=== PATIENT | female | born 1945 | race Caucasian/White ===

== ENCOUNTER 2022-11-16 13:36 | Emergency (ER) | payer MEDICARE, OTHER, SELFPAY ==
[2022-11-16] VITALS (13 sets, daily range): BP systolic 112–163; BP diastolic 57–73; PULSE 64–75; RESP 12–35; TEMP 36.4; O2SAT 94–99; BMI 35.1
--- NOTE | 2022-11-16 13:55 | DI.RAD.S_ITS ---
PROCEDURE: XR CHEST 1V INDICATIONS: chest pain TECHNIQUE: One view of the chest was acquired. COMPARISON: None. FINDINGS: Surgical changes and devices: None. Lungs and pleura: No focal airspace opacities. There is diffuse interstitial prominence. Mediastinum: Mediastinal contours appear normal. Heart size is normal. Bones and chest wall: No suspicious bony lesions. Overlying soft tissues appear unremarkable. IMPRESSION: Diffuse interstitial prominence suggesting fluid overload. Dictated by: Ashley Shipley M.D. on 11/16/2022 at 15:32 Approved by: Ashley Shipley M.D. on 11/16/2022 at 15:33
[2022-11-16 14:06] LABS: Add Manual Diff / Slide Review NO; Basophils Absolute Auto 100 /uL (0-100); Basophils Percent Auto 1.3 % (0-2); Eosinophils Absolute Auto 500 /uL (0-450); Eosinophils Percent Auto 6.7 % (2-4); Hematocrit 41.9 % (36-46); Hemoglobin 13.8 g/dL (12.0-16.0); Lymphocytes Absolute Auto 1700 /uL (1100-4500); Lymphocytes Percent Auto 22.4 % (25-40); Mean Corpuscular Hemoglobin 30.3 PG (26-34); Mean Corpuscular Volume 91.9 fL (80-100); Monocytes Absolute Auto 800 /uL (0-900); Monocytes Percent Auto 11.2 % (3-14); Neutrophils Absolute Auto 4400 /uL (1500-7000); Neutrophils Percent Auto 58.4 % (50-75); Platelet Count 321 X10^3/uL (150-400); Red Blood Cell Count 4.56 X10^6/uL (4.0-5.2); Red Cell Distribution Width 13.9 % (11.6-14.8); White Blood Cell Count 7.6 X10^3/uL (4.5-11.0)
[2022-11-16 14:14] LABS: INR 0.9 (0.9-1.3); Prothrombin Time 10.8 SECONDS (10.1-12.7)
[2022-11-16 14:16] LABS: PTT Partial Thromboplastin Tim 29 SECONDS (26-36)
[2022-11-16 14:19] LABS: Alanine Aminotransferase 50 IU/L (<35); Alkaline Phosphatase 77 U/L (38-126); Aspartate Aminotransferase 39 IU/L (14-36); BUN Creatinine Ratio 18.2 (6-22); Bilirubin Total 0.4 mg/dL (0.2-1.3); Blood Urea Nitrogen 14 mg/dL (7-17); Calcium 9.2 mg/dL (8.4-10.2); Carbon Dioxide 27 mmol/L (22-32); Chloride 102 mmol/L (98-107); Estimated Glomerular Filt Rate > 60 mL/min (>60); Glucose 111 mg/dL (80-110); Lipase 99 U/L (23-300); Magnesium 1.7 mg/dL (1.6-2.3); Potassium 4.3 mmol/L (3.4-5.1); Sodium 138 mmol/L (137-145); Total Protein 8.2 g/dL (6.3-8.2)
[2022-11-16 14:24] LABS: Creatine Kinase 73 U/L (30-135)
[2022-11-16 14:30] LABS: NT-proBNP (BNP-Adult 18+) 45 pg/mL (<125); Troponin I < 0.012 ng/mL (0.01-0.034)
--- NOTE | 2022-11-16 14:35 | DI.CT.S_ITS ---
PROCEDURE: CT CHEST ABD PEL W CON INDICATIONS: Fatigue; abdomen tenderness to palpate; hx endometrial cancer TECHNIQUE: After the administration of intravenous contrast, 5 mm thick sections acquired from the lung apices to the symphysis. 5 mm coronal and sagittal reformats were performed, with additional 7 mm MIP reformats through the lungs. For radiation dose reduction, the following was used: automated exposure control, adjustment of mA and/or kV according to patient size. COMPARISON: None. FINDINGS: Image quality: Excellent. CHEST: Lungs and pleura: A 7 mm pulmonary nodule is present within the posterior right upper lobe (series 5/image 103). There is diffuse, peripheral interlobular septal thickening suggesting early fibrotic change. A 5 mm pulmonary nodule is present within the lateral right lower lobe (series 5/image 245). A 7 mm pulmonary nodule is present at the right apex (series 5/image 71 base. A 7 mm pulmonary radiopacity is present at the left lung base (series 5/image 264). No pleural effusion or pneumothorax. No acute airspace opacities. Mediastinum: Heart size is normal. No pericardial effusion. No mediastinal or hilar adenopathy by size criteria. Thoracic aorta and central pulmonary arteries are normal in size. Esophagus is normal in caliber. No hiatal hernia. Chest wall: No axillary or supraclavicular adenopathy by size criteria. Thyroid gland is unremarkable . ABDOMEN: Solid organs: Liver is normal in size and enhancement. Gallbladder is surgically absent . Biliary system is non dilated. Pancreas enhances normally. Spleen is normal in size and enhancement. No adrenal nodules. Kidneys demonstrate normal size and enhancement, without hydronephrosis. A nonobstructing 2 mm calculus is present in the lower pole of the left kidney. No hydroureter or ureterolithiasis. Peritoneum and bowel: Bowel loops demonstrate normal wall thickness and caliber. The appendix is thin walled. No free fluid or air. Nodes and vessels: No retroperitoneal or mesenteric adenopathy by size criteria. Aorta and inferior vena cava are normal in size. Miscellaneous: There is a large fat containing umbilical hernia. PELVIS: Genitourinary: Bladder wall thickness is normal. Uterus is likely surgically absent. Miscellaneous: No inguinal hernias or adenopathy. Bones: No suspicious bony lesions. No vertebral body compression fractures. IMPRESSION: 1. No acute intra-abdominal findings. Normal appendix. 2. No acute thoracic findings. 3. Multiple pulmonary nodules measuring up to 7 mm in diameter. Please see follow-up guidelines below. Follow-up CT in 3 months recommended. Fleischner Society criteria for SOLID lung nodule followup. Nodule size (mm)Low-risk patientHigh-risk patient<6 (single or multiple)No routine followup.Optional CT at 12 months. 6-8 (single or multiple)CT at 6-12 months, then optional CT at 18-24 mo.CT at 6-12 months, then CT at 18-24 months. >8 (single)CT at 3 months, PET-CT, or biopsy. Same as for low-risk pts. >8 (multiple)CT at 3-6 months, then optional CT at 18-24 mo.CT at 3-6 months, then CT at 18-24 months. Fleischner Society criteria for SUB-SOLID lung nodule followup. Solitary pure ground-glass nodules<6 mm (ground glass or part solid)No followup needed. 6 mm or larger (ground glass)CT at 6-12 months to confirm persistence, then CT every 2 years until 5 years.6 mm or larger (part solid)CT at 3-6 months to confirm persistence, then annual CT until 5 years if unchanged and solid component remains <6 mm. Multiple sub-solid nodules<6 mmCT at 3-6 months, then CT consider at 2 & 4 years for high risk patients. [address] at 3-6 months. Subsequent management based on most suspicious lesions. Recommendations do not apply to lung cancer screening, patients with immunosuppression, or patients with known primary cancer. Dictated by: Ashley Shipley M.D. on 11/16/2022 at 16:17 Approved by: Ashley Shipley M.D. on 11/16/2022 at 16:22
--- NOTE | 2022-11-16 14:40 | ED_ITS ---
HPI - Chest Pain General Chief Complaint: Chest Pain Stated Complaint: chest tightness and pain, exhausted, tired Time Seen by Provider: 11/16/22 13:43 Source: patient and family Mode of arrival: Ambulatory Limitations: no limitations History of Present Illness HPI narrative: 76-year-old female with past medical history endometrial cancer in remission, hyperlipidemia, type 2 diabetes, hypothyroidism, depression, anxiety presents to the ED with 1.5 months of worsening fatigue, palpitations, lightheadedness. Pat mary jo states that she is now unable to do basic things such as walk around, perform ADLs such as cooking due to the fatigue. Patient complains of palpitations, chest tightness, needing to take a long deep breath and hold it in to feel like she is getting good air. Endorses some nausea, denies vomiting. Denies changes to bowel movements. Patient denies fever, chills, vomiting, dysuria, leg swelling. Patient underwent radiation for endometrial cancer about 4 years ago, has been cancer free since. Is being monitored by OBGYN Dr. Porsha Valdez. Patient's endorses tolerating p.o.. Endorses reduced appetite. Patient saw her PCP recently, who started her on fluoxetine and buspirone about a month ago, attributing her symptoms to anxiety. Patient states that her symptoms have remained unchanged with the addition of these medications. Patient denies being depressed or anxious. Related Data Home Medications Medication Instructions Recorded Confirmed levothyroxine 137 mcg tablet 137 mcg PO DAILY ##0 05/31/17 11/16/22 (Levoxyl) dicyclomine 10 mg capsule 10 mg PO BID 06/26/20 04/15/22 metformin 500 mg tablet,extended 500 mg PO BID 06/26/20 11/16/22 release 24 hr pravastatin 10 mg tablet 10 mg PO DAILY 04/15/22 04/15/22 buspirone 10 mg tablet 10 mg PO BID 11/16/22 11/16/22 fluoxetine 10 mg capsule 10 mg PO DAILY 11/16/22 11/16/22 Previous Rx's Medication Instructions Recorded furosemide 40 mg tablet (Lasix) 40 mg PO DAILY #30 tabs 11/16/22 Allergies Allergy/AdvReac Type Severity Reaction Status Date / Time chlorpheniramine Allergy Unknown Verified 11/16/22 13:59 [From TUSSIONEX] hydrocodone [HYDROCODONE] Allergy Unknown Verified 11/16/22 13:59 naproxen [NAPROXEN] Allergy Unknown Verified 11/16/22 13:59 pseudoephedrine Allergy Unknown Verified 11/16/22 13:59 [PSEUDOEPHEDRINE] Review of Systems Review of Systems ROS Unobtainable: All systems reviewed & are unremarkable except as noted in HPI and below Constitutional Constitutional: Denies chills, Reports daytime sleepiness, Reports fatigue, Denies fever(s), Denies frequent falls, Reports lethargy, Reports poor appetite and Reports weakness Eyes Eyes: Denies change in vision, Denies eye discharge, Denies irritation and Denies loss of vision ENT Ears, Nose, Mouth, and Throat: Denies change in voice, Denies dizziness, Denies neck pain, Denies sore throat and Denies throat swelling Cardiovascular Cardiovascular: Reports chest pain, Denies irregular heart rhythm, Denies lightheadedness, Reports palpitations, Reports dyspnea, Denies dyspnea on exertion and Denies orthopnea Respiratory Respiratory: Reports cough, Reports dyspnea, Denies dyspnea on exertion and Denies wheezing Gastrointestinal Gastrointestinal: Denies abdominal pain, Denies change in bowel habits, Denies diarrhea, Reports nausea and Denies vomiting Genitourinary Genitourinary: Denies hematuria, Denies flank pain, Denies urinary incontinence and Denies urinary urgency Musculoskeletal Musculoskeletal: Denies back pain, Denies muscle weakness, Denies neck pain, Denies numbness and Denies tingling Integumentary/Breasts Skin/Breast: Denies pruritus, Denies erythema, Denies rash and Denies wounds Neurologic Neurologic: Denies behavioral changes, Denies confusion, Denies dizziness, Denies frequent falls, Denies loss of vision, Denies numbness, Denies tingling and Reports weakness Psychiatric Psychiatric: Denies anxiety, Denies behavioral changes, Denies confusion, Denies depression, Denies homicidal ideation and Denies suicidal ideation Endocrine Endocrine: Reports fatigue, Denies flushing and Reports palpitations Hematologic/Lymphatic Hematologic/Lymphatic: Denies easy bruising Allergic/Immunologic Allergic/Immunologic: Denies urticaria, Denies throat swelling and Denies wheezing Patient History Medical History Endometrial cancer Hypothyroidism (acquired) Surgical History S/P total hysterectomy and BSO (bilateral salpingo-oophorectomy) Social History Smoking Status: Never smoker Smoking Status: Never smoker alcohol intake frequency: holidays/special occasions only Substance Use Type: does not use Exam Narrative Exam Narrative: Const General:?cooperative, healthy appearing and comfortable [facility] Head:?normal to inspection Ears:?hearing grossly normal bilaterally Nose:?external nose normal Face and sinus:?normal facial exam and sinuses nontender Mouth:?oral mucosae normal Throat:?posterior oropharynx normal Eyes General:?appearance normal, both eyes and all related structures Neck Neck:?normal visual inspection and no lymphadenopathy noted Resp Effort & Inspection:?normal respiratory effort Auscultation:?clear to auscultation bilaterally Cardio Rate:?regular rate Rhythm:?regular rhythm GI Abdomen is soft, nondistended. Abdomen is tender to palpation diffusely. No CVA tenderness. Neuro General:?patient alert, patient awake and patient oriented x3 Initial Vital Signs Initial Vital Signs: Vital Signs Temperature 97.6 F 11/16/22 13:45 Pulse Rate 73 11/16/22 13:45 Respiratory Rate 18 11/16/22 13:45 Blood Pressure 163/73 H 11/16/22 13:45 Pulse Oximetry 99 11/16/22 13:45 Oxygen Delivery Method 11/16/22 13:45 Course Orders Ordered: Discontinued Medications Furosemide (Furosemide 40 Mg/4 Ml Vial) 40 mg IV NOW ONE Stop: 11/16/22 17:48 Last Admin: 11/16/22 18:05 Dose: 40 mg Documented By: KASSIDY Vital Signs Vital signs: Vital Signs - 8 hr 11/16/22 13:45 11/16/22 15:58 11/16/22 16:00 Temperature 97.6 F Pulse Rate 73 68 Respiratory Rate 18 12 Blood Pressure 163/73 H 112/57 L Pulse Oximetry 99 Oxygen Delivery Method Nasal Cannula 11/16/22 16:00 11/16/22 16:30 11/16/22 16:31 Temperature Pulse Rate 67 66 Respiratory Rate 18 15 Blood Pressure 142/65 H Pulse Oximetry 95 94 Oxygen Delivery Method Room Air 11/16/22 16:31 11/16/22 17:00 11/16/22 17:01 Temperature Pulse Rate 64 70 67 Respiratory Rate 14 14 15 Blood Pressure Pulse Oximetry 96 96 95 Oxygen Delivery Method 11/16/22 17:01 11/16/22 17:27 11/16/22 17:27 Temperature Pulse Rate 67 Respiratory Rate 13 Blood Pressure 151/71 H 157/72 H Pulse Oximetry 96 Oxygen Delivery Method 11/16/22 17:30 11/16/22 17:31 11/16/22 17:31 Temperature Pulse Rate 65 66 Respiratory Rate 15 14 Blood Pressure 140/73 Pulse Oximetry 94 95 Oxygen Delivery Method 11/16/22 18:00 11/16/22 18:01 11/16/22 18:01 Temperature Pulse Rate 75 75 Respiratory Rate 26 H 22 Blood Pressure 148/73 H Pulse Oximetry 96 97 Oxygen Delivery Method 11/16/22 18:30 Temperature Pulse Rate 75 Respiratory Rate 35 H Blood Pressure Pulse Oximetry 97 Oxygen Delivery Method MDM - Chest Pain Lab Data Result diagrams: 11/16/22 13:41 11/16/22 13:41 Labs: Lab Results 11/16/22 11/16/22 11/16/22 Range/Units 13:41 13:41 13:41 WBC 7.6 (4.5-11.0) X10^3/uL RBC 4.56 (4.0-5.2) X10^6/uL Hgb 13.8 (12.0-16.0) g/dL Hct 41.9 (36-46) % MCV 91.9 (80-100) fL MCH 30.3 (26-34) PG MCHC 33.0 (30-36) % RDW 13.9 (11.6-14.8) % Plt Count 321 (150-400) X10^3/uL Neut % (Auto) 58.4 (50-75) % Lymph % (Auto) 22.4 L (25-40) % [place] % (Auto) 11.2 (3-14) % Eos % (Auto) 6.7 H (2-4) % Baso % (Auto) 1.3 (0-2) % Neut # (Auto) 4400 (9133-7379) /uL Lymph # (Auto) 1700 (8891-4166) /uL [place] # (Auto) 800 (0-900) /uL Eos # (Auto) 500 H (0-450) /uL Baso # (Auto) 100 (0-100) /uL PT 10.8 (10.1-12.7) SECONDS INR 0.9 (0.9-1.3) APTT 29 (26-36) SECONDS Sodium 138 (137-145) mmol/L Potassium 4.3 (3.4-5.1) mmol/L Chloride 102 (98-107) mmol/L Carbon Dioxide 27 (22-32) mmol/L BUN 14 (7-17) mg/dL Creatinine 0.77 (0.52-1.04) mg/dL Estimated GFR > 60 (>60) mL/min BUN/Creatinine Ratio 18.2 (6-22) Glucose 111 H (80-110) mg/dL Calcium 9.2 (8.4-10.2) mg/dL Magnesium 1.7 (1.6-2.3) mg/dL Total Bilirubin 0.4 (0.2-1.3) mg/dL AST 39 H (14-36) IU/L ALT 50 H (<35) IU/L Alkaline Phosphatase 77 (38-126) U/L Total Creatine Kinase 73 (30-135) U/L CK-MB (CK-2) TNP CK-MB (CK-2) Rel Index TNP Troponin I < 0.012 (0.01-0.034) ng/mL NT-Pro-B Natriuret Pep 45 (<125) pg/mL Total Protein 8.2 (6.3-8.2) g/dL Lipase 99 (23-300) U/L TSH (0.47-4.68) uIU/mL Urine Color Urine Appearance Urine pH (4.5-8.0) Ur Specific [place] (1.000-1.035) Urine Protein (Negative) Urine Glucose (UA) (Negative) g/dL Urine Ketones (NEGATIVE) Urine Occult Blood (Negative) Urine Nitrate (Negative) Urine Bilirubin (NEGATIVE) Urine Urobilinogen (0.2) E.U./dL Ur Leukocyte Esterase (NEGATIVE) Urine RBC (0-5/HPF) Urine WBC (0-5/HPF) Ur Squamous Epith Cells (0-5/HPF) Urine Bacteria (None) Ur Culture Indicated? 11/16/22 11/16/22 Range/Units 13:41 17:27 WBC (4.5-11.0) X10^3/uL RBC (4.0-5.2) X10^6/uL Hgb (12.0-16.0) g/dL Hct (36-46) % MCV (80-100) fL MCH (26-34) PG MCHC (30-36) % RDW (11.6-14.8) % Plt Count (150-400) X10^3/uL Neut % (Auto) (50-75) % Lymph % (Auto) (25-40) % [place] % (Auto) (3-14) % Eos % (Auto) (2-4) % Baso % (Auto) (0-2) % Neut # (Auto) (4663-2148) /uL Lymph # (Auto) (4599-5559) /uL [place] # (Auto) (0-900) /uL Eos # (Auto) (0-450) /uL Baso # (Auto) (0-100) /uL PT (10.1-12.7) SECONDS INR (0.9-1.3) APTT (26-36) SECONDS Sodium (137-145) mmol/L Potassium (3.4-5.1) mmol/L Chloride (98-107) mmol/L Carbon Dioxide (22-32) mmol/L BUN (7-17) mg/dL Creatinine (0.52-1.04) mg/dL Estimated GFR (>60) mL/min BUN/Creatinine Ratio (6-22) Glucose (80-110) mg/dL Calcium (8.4-10.2) mg/dL Magnesium (1.6-2.3) mg/dL Total Bilirubin (0.2-1.3) mg/dL AST (14-36) IU/L ALT (<35) IU/L Alkaline Phosphatase (38-126) U/L Total Creatine Kinase (30-135) U/L CK-MB (CK-2) CK-MB (CK-2) Rel Index Troponin I (0.01-0.034) ng/mL NT-Pro-B Natriuret Pep (<125) pg/mL Total Protein (6.3-8.2) g/dL Lipase (23-300) U/L TSH 0.88 (0.47-4.68) uIU/mL Urine Color Yellow Urine Appearance Clear Urine pH 6.5 (4.5-8.0) Ur Specific [place] 1.010 (1.000-1.035) Urine Protein Negative (Negative) Urine Glucose (UA) Negative (Negative) g/dL Urine Ketones Negative (NEGATIVE) Urine Occult Blood Negative (Negative) Urine Nitrate Negative (Negative) Urine Bilirubin Negative (NEGATIVE) Urine Urobilinogen 0.2 (0.2) E.U./dL Ur Leukocyte Esterase Negative (NEGATIVE) Urine RBC None seen (0-5/HPF) Urine WBC None seen (0-5/HPF) Ur Squamous Epith Cells 0-1 /hpf (0-5/HPF) Urine Bacteria None seen (None) Ur Culture Indicated? Cult not indicated MDM Narrative Medical decision making narrative: 76-year-old female with past medical history endometrial cancer in remission, hyperlipidemia, type 2 diabetes, hypothyroidism, depression, anxiety presents to the ED with 1.5 months of worsening fatigue, palpitations, lightheadedness. Concern for ACS versus heart failure versus pneumonia versus malignancy versus GERD versus gastritis versus intra-abdominal pathology versus thyroid derangements versus other. Will obtain EKG, labs, troponin, BNP, CT chest abdomen pelvis. Will reassess. EKG, labs, UA with no acute findings. CT chest abdomen pelvis shows multiple pulmonary nodules measuring up to 7 mm in diameter. Discussed findings with patient that nodules could be malignant, and she will need to follow-up for further evaluation. Patient agrees to follow-up with pulmonology and Oncology for further evaluation of the nodules. Patient was given a dose of Lasix as a trial, which improved her dyspnea. Patient also agrees to follow-up with cardiology. Will give a prescription for Lasix to use until patient has a chance to follow-up with the specialists. ED return precautions were discussed with patient. Patient verbalized understanding. Medical records reviewed:??none available for review Independently reviewed EKG as above:NSR, no ST-T changes, no axis deviation ? Disposition: see below, along with detailed discharge instructions that have been reviewed with patient as well as indications for ED re-evaluation and additional outpatient follow up Discharge Plan Departure Patient Disposition: Home Clinical Impression: Dyspnea Instructions: DI for Shortness of Breath Activity Restrictions/Additional Instructions: You were evaluated in the ED today for fatigue, palpitations, shortness of breath. Your EKG, labs were normal. Your CT scan of the chest, abdomen showed several pulmonary nodules in your lungs as well as some septal thickening which could mean fibrotic changes in your lungs. It is unclear what the etiology of these nodules are. You will need further evaluation by a puttier and oncologist to evaluate the etiology for malignancy and monitor these nodules. The nodules could be caused due to your prior history with endometrial cancer or by passive cigarette smoke during her childhood. We gave you some Lasix as a trial and it did seem to improve your breathing. You may continue taking a dose of Lasix daily until you are able to see your PCP and the other specialists. We recommend that you see a puttier as soon as possible to evaluate the nodules. We also recommend that you see a fly worker. You may call [facility] at [phone] for an appointment. Please return to the ED if your shortness of breath worsens, you chest pain worsens. We also advise at this point that you avoid any extensive travel until further evaluation. Prescriptions: New furosemide [Lasix] 40 mg tablet 40 mg PO DAILY Qty: 30 0RF No Action levothyroxine [Levoxyl] 137 MCG tablet 137 mcg PO DAILY Qty: 0 pravastatin 10 mg tablet 10 mg PO DAILY metformin 500 mg tablet extended release 24 hr 500 mg PO BID dicyclomine 10 mg capsule 10 mg PO BID buspirone 10 mg tablet 10 mg PO BID fluoxetine 10 mg capsule 10 mg PO DAILY Label Comments: Take 1 capsule (10 mg total) by mouth daily Referrals: Tania Lira MD [Primary Care Provider] - Stand Alone Forms: Patient Portal/API
[2022-11-16 14:50] LABS: TSH w/ Reflex to FT4 0.88 uIU/mL (0.47-4.68)
[2022-11-16 17:57] LABS: Appearance Urine UA CLEAR; Bilirubin Urine UA NEGATIVE (NEGATIVE); Color Urine UA YELLOW; Glucose Urine UA NEGATIVE (Negative); Ketones Urine UA NEGATIVE (NEGATIVE); Leukocyte Esterase Urine UA NEGATIVE (NEGATIVE); Nitrite Urine UA NEGATIVE (Negative); Occult Blood Urine UA NEGATIVE (Negative); Protein Urine UA NEGATIVE (Negative); Urobilinogen Urine UA 0.2 E.U./dL (0.2)
[2022-11-16] MEDS: FUROSEMIDE 40 MG/4 ML VIAL IV (18:05)
[2022-11-16 18:17] LABS: pH Urine UA 6.5 (4.5-8.0)
[2022-11-16 18:44] LABS: Bacteria Urine None Seen; Culture Indicated Urine Cult Not Indicated; RBC Urine None Seen (0-5/HPF); Squamous Epithelial Cell Urine 0-1 /HPF (0-5/HPF); WBC Urine None Seen (0-5/HPF)
[2022-11-20 15:45] LABS: Albumin 4.4 g/dL (3.5-5.0); Albumin Globulin Ratio 1.2 (1.0-2.8); Globulin 3.8 g/dL (1.7-4.1); HEMOLYSIS 21 (0-50)
== END 2022-11-16 18:58 | disposition home or self-care (01) ==
PROVIDERS: Emergency Medicine; Emergency Provider Student in an Organized Health Care Education/Training Program; PCP Specialist
DX: R06.00 Dyspnea, unspecified (principal); R00.2 Palpitations
CPT/HCPCS: 36415; 71045; 71260; 74177; 80053; 81001; 82550; 83690; 83735; 83880; 84443; 84484; 85025; 85610; 85730; 93005; 96374; 99284; 99285; J1940; Q9967